=== PATIENT | male | born 1985 | race Caucasian/White ===

== ENCOUNTER 2023-07-13 09:05 | Outpatient (CLI) | payer OTHER | END 2023-07-13 09:16 | disposition home or self-care (01) | LOC: SONOGRAMA 09:05 | DX: R10.9 Unspecified abdominal pain (principal) ==

== ENCOUNTER 2024-07-10 06:28 | Emergency (ER) | payer OTHER ==
[~2024-07-10] VITALS: Ht 165.1 cm; Wt 93.0 kg
[2024-07-10] MEDS ORDERED: EZALLOR SPRINKLE5 MG (06:33)
[2024-07-10] MEDS ORDERED: KETOROLAC TROMETHAMINE 60 MG VIAL IM STA (08:18)
[2024-07-10] MEDS ORDERED: FAMOtidine 10 MG/ML (4ML VIAL) IV STA (08:18)
[2024-07-10 08:47] LABS: HEMATOCRIT 45.6 % (39.0-48.0); HEMOGLOBIN 15.5 g/dL (13-16.00); MEAN CORPUSCULAR HEMOGLOBIN 30.7 pg (27.00-32.0); MEAN CORPUSCULAR HGB CONC 34.1 g/dl (32.0-36.0); PLATELET COUNT 353 K/uL (150-450); RED BLOOD COUNT 5.06 M/uL (4.00-6.00); RED CELL DISTRIBUTION WIDTH 13.7 % (11.5-14.5)
[2024-07-10 08:53] LABS: URINE APPEARANCE Clear; URINE BILIRRUBIN Negative (NEGATIVE); URINE BLOOD Negative; URINE COLOR Yellow; URINE GLUCOSE Negative (NEGATIVE); URINE KETONE Negative (NEGATIVE); URINE LEUKOCYTE Negative; URINE NITRATE Negative; URINE PROTEIN Trace (NEGATIVE)
[2024-07-10 08:55] LABS: URINE BACTERIA 7.3 uL (0.0-1933); URINE WBC 7.4 uL (0.0-23.2)
[2024-07-10 09:01] LABS: URINE CAST 0.14 uL (0.0-1.40); URINE EPITHELIAL CELLS 0.4 uL (0.0-38.8)
[2024-07-10 09:08] LABS: CREATININE SERUM 0.91 mg/dL (0.70-1.30); GFR 92.27; POTASSIUM 4.21 mEq/L (3.5-5.1)
== END 2024-07-10 09:37 | disposition home or self-care (01) ==
LOC: ER 06:31
PROVIDERS: General Practice
DX: R07.89 Other chest pain (principal); I10 Essential (primary) hypertension
CPT/HCPCS: 36415; 71045; 93005; 96365; 96372; 99283; J1885; J3490